=== PATIENT | female | born 1955 | race Caucasian/White ===

== ENCOUNTER → 2022-12-31 14:39 | Outpatient (BNVA) | payer MEDICARE, BC, SELFPAY | PROVIDERS: Family Provider Physician Assistant; PCP Nurse Practitioner; Visit Provider Dermatology | DX: L71.0 Perioral dermatitis (principal); L82.1 Other seborrheic keratosis; L81.4 Other melanin hyperpigmentation; Z85.828 Personal history of other malignant neoplasm of skin | CPT/HCPCS: 99203 ==

== ENCOUNTER → 2023-02-10 15:04 | Outpatient (BNVA) | payer MEDICARE, BC, SELFPAY | PROVIDERS: Family Provider Physician Assistant; PCP Nurse Practitioner; Visit Provider Dermatology | DX: L71.0 Perioral dermatitis (principal) | CPT/HCPCS: 99213 ==